=== PATIENT | male | born 1995 | race Caucasian/White ===

== ENCOUNTER 2019-09-17 07:57 | Day surgery (SDC) | payer BC ==
[2019-09-17] VITALS (11 sets, daily range): BP systolic 94–124; BP diastolic 50–84
[~2019-09-17] VITALS: Ht 180.3 cm; Wt 75.0 kg
[~2019-09-17 07:57] MED LIST: NO HOME MEDS; clindamycin-Cleocin 900mg/D5W 50 ML IV ONE; famotidine 10mg tablet PO ONE; ringers solution, lacted 1,000 ML IV SCH
[2019-09-17] MEDS ORDERED: BUPIVAcaine/PF 2.5 mg/ml (0.25%) 30ml vial ONE (11:10)
[2019-09-17] MEDS ORDERED: ringers solution, lacted 1,000 ML IV SCH (11:12)
[2019-09-17] MEDS ORDERED: morphine 4 MG/ML inj SYRINge IV PRN ×2 (11:15)
[2019-09-17] MEDS ORDERED: labetalol 20mg/4ml (5mg/ml) syringe IV PRN (11:15)
[2019-09-17] MEDS ORDERED: fentaNYL/PF 50MCG/1 ML 2ML syringe IV PRN ×2 (11:15)
[2019-09-17] MEDS ORDERED: ondansetron/PF 4mg/2ml inj IV PRN (11:15)
[2019-09-17] MEDS ORDERED: hydrALAZINE 20mg/ml inj. IV PRN (11:15)
[2019-09-17] MEDS ORDERED: fentaNYL/PF 50MCG/1 ML 2ML syringe ONE (11:23)
[2019-09-17] MEDS ORDERED: MIDAZolam 1mg/ml 10ml vial ONE (11:23)
[2019-09-17] MEDS ORDERED: LIDOcaine 2% (20mg/ml) 5ml vial ONE (11:39)
[2019-09-17] MEDS ORDERED: propofol inj 20 ML IV ONE (11:39)
[2019-09-17] MEDS ORDERED: vancomycin 1,000mg inj ONE ×2 (12:01)
--- NOTE | 2019-09-17 12:25 | NUR ---
Received from OR via BED, accompanied by Anesthesiologist DR BREWSTER-- and report given by Anesthesiolgist. PATIENT A&OX4, DENIES PAIN, V/S WNL, NEUROVASCULAR CHECKS INTACT, 20G PIV RUE, SCD ON, POSTERIOR BUTTOCKS DRESSING CDI. SENSATIONS T1
--- NOTE | 2019-09-17 14:15 | NUR ---
PATIENT A&OX4, DENIES PAIN, V/S WNL, NEUROVASCULAR CHECKS INTACT, 20G PIV RUE, SCD ON, POSTERIOR BUTTOCKS DRESSING CDI. SENSATIONS T3, PATIENT TAKEN TO PAS DUE TO NOT BEING READY TO BE D/C DUE TO SPINAL NOT WORN OFF YET. REPORT GIVEN TO PASS RN WHO HAS TAKEN OVER PATIENT CARE.
--- NOTE | 2019-09-17 17:00 | NUR ---
sab worn off to a point where pt can ambulate ad sandra. urinated without difficulty. coccyx incision dermabonded, no redness or drainage. pt and mother were given dc instructions earlier in pacu. they verbalize understanding. piv dcd cath intact. pt dcd in stable condition, taken to car via [place].
== END 2019-09-17 17:00 | disposition home or self-care (01) ==
LOC: PAS 07:57
PROVIDERS: ATTEND Surgery
DX: L05.01 Pilonidal cyst with abscess (principal); F17.210 Nicotine dependence, cigarettes, uncomplicated; Z88.0 Allergy status to penicillin; Z79.899 Other long term (current) drug therapy; Z80.0 Family history of malignant neoplasm of digestive organs
CPT/HCPCS: 11771; 82948; J2001; J2250; J2704; J3010; J3370; J3490; J7120; A4215; A4618; A6258; A6407; A7000